=== PATIENT | male | born 1960 | race Caucasian/White ===

== ENCOUNTER 2019-03-22 05:56 | Inpatient (IN) ==
[2019-03-22] MEDS ORDERED: ceFAZolin Inj 2gm (Premix) 2 GM/50 ML BAG IV ONE ×2 (06:00→06:09)
[2019-03-22] MEDS ORDERED: LIDOCAINE W/ SODIUM BICARB 0.5 ML SYR SUBD ONE (06:00)
[2019-03-22] MEDS ORDERED: Lactated Ringers 1,000 ML PRIMARY IV ONE ×3 (06:00→11:01)
[2019-03-22] MEDS ORDERED: Vancomycin-PHA to Dose IV PRN (06:00)
[2019-03-22] MEDS ORDERED: LIDOCAINE W/ SODIUM BICARB 0.5 ML SYR ONE (06:10)
[2019-03-22] MEDS: Nasal Sanitizer POPSWAB ampule 3 AMP (Nozin) PREOP DOSE ENOS SCH ×3 (06:15→12:09)
[2019-03-22 06:27] LABS: BILIRUBIN,URINE NEGATIVE (NEG); CLARITY,URINE CLEAR (CLEAR); COLOR,URINE YELLOW (Y); GLUCOSE, URINE (UA) NEGATIVE (NEG); OCCULT BLOOD,URINE Trace-intact (NEG); PH,URINE 6.5 (5.0-8.5); PROTEIN,URINE NEGATIVE (NEG); UROBILINOGEN,URINE 0.2 EU/dL (0.2)
[2019-03-22 06:28] LABS: URINE SAMPLE TYPE CLEAN CATCH URINE
[2019-03-22] MEDS ORDERED: BACITRACIN 50,000 UNIT VIAL IRRIG ONE ×4 (06:54→10:40)
[2019-03-22] MEDS ORDERED: Sodium Chloride 0.9% vial 10 ML ONE ×3 (06:54→10:20)
[2019-03-22] MEDS ORDERED: BUPIVACAINE 0.25% W/ EPI - 10 ML VIAL ONE (07:01)
[2019-03-22] MEDS ORDERED: LIDOCAINE HCL 2 % 10 ML JELLY URO-JECT TOPICAL ONE (07:10)
[2019-03-22] MEDS ORDERED: ROCURONIUM 10 MG/1 ML - 5 ML VIAL IVP ONE (07:21)
[2019-03-22] MEDS ORDERED: fentaNYL Inj 250 MCG/5 ML VIAL ONE (07:25)
[2019-03-22] MEDS ORDERED: ONDANSETRON 4 MG/2 ML VIAL ONE ×2 (07:26→10:16)
[2019-03-22] MEDS ORDERED: KETOROLAC 30 MG/1 ML VIAL ONE ×2 (07:26→10:16)
[2019-03-22] MEDS ORDERED: PROPOFOL 10 MG/1 ML (200 MG/20 ML) VIAL IV ONE (07:26)
[2019-03-22] MEDS ORDERED: DEXAMETHASONE PF 10 MG/1 ML VIAL ONE (07:26)
[2019-03-22] MEDS ORDERED: LIDOCAINE MPF 2% - 5 ML (20 MG/1 ML) ONE (07:26)
[2019-03-22] MEDS ORDERED: BUPivacaine Inj 0.25% PF - 10ml vial ONE (08:20)
[2019-03-22] MEDS ORDERED: BUPivacaine Liposome/PF (Exparel) Inj 20ml vial INFIL ONE (08:20)
[2019-03-22] MEDS ORDERED: fentaNYL Inj 100 MCG/2 ML VIAL ONE (10:15)
[2019-03-22] MEDS ORDERED: Vancomycin Inj 1gm vial ONE ×2 (10:24→10:41)
[2019-03-22] MEDS ORDERED: TRANEXAMIC ACID 1,000 MG / 10 ML VIAL ONE (10:28)
[2019-03-22] MEDS ORDERED: Sodium Chloride 0.9% vial 20 ML ONE (10:40)
[2019-03-22] MEDS ORDERED: Gentamicin Inj 40 MG/ML VIAL ONE (10:41)
[2019-03-22] MEDS ORDERED: SUGAMMADEX SODIUM 200 MG/2 ML VIAL IV ONE (11:01)
[2019-03-22] MEDS ORDERED: Ondansetron ODT Tab 8 MG TAB PO PRN (11:40)
[2019-03-22] MEDS ORDERED: fentaNYL Inj 100 MCG/2 ML VIAL IVP PRN (11:40)
[2019-03-22] MEDS ORDERED: ONDANSETRON 4 MG/2 ML VIAL IVP PRN (11:40)
[2019-03-22] MEDS ORDERED: Meperidine Inj 50 MG/ML CARPUJECT IVP PRN (11:40)
[2019-03-22] MEDS ORDERED: Metoclopramide Inj 10 MG/2 ML VIAL IVP PRN (11:40)
[2019-03-22] MEDS ORDERED: MORPHINE SULFATE 2 MG/1 ML IVP PRN ×2 (11:40→13:00)
[2019-03-22] MEDS ORDERED: NALOXONE 0.4 MG/1 ML VIAL IVP PRN (11:40)
[2019-03-22] MEDS ORDERED: LIDOCAINE W/ SODIUM BICARB 0.5 ML SYR SUBD PRN (11:40)
[2019-03-22] MEDS ORDERED: Lactated Ringers 1,000 ML PRIMARY IV SCH (11:45)
[2019-03-22] MEDS: HYDROmorphone 2 MG/1 ML IVP PRN ×4 (12:18→12:40)
[2019-03-22] MEDS ORDERED: HYDROmorphone 2 MG/1 ML ONE (12:18)
[2019-03-22] MEDS ORDERED: DIAZEPAM 10 MG/2 ML (5 MG/1 ML) CARPUJECT IVP ONE (12:39)
[2019-03-22] MEDS ORDERED: DIAZEPAM 10 MG/2 ML (5 MG/1 ML) CARPUJECT ONE (12:40)
[2019-03-22] MEDS ORDERED: DIAZEPAM 10 MG/2 ML (5 MG/1 ML) CARPUJECT IVP PRN (13:00)
[2019-03-22] MEDS ORDERED: PROMETHAZINE 25 MG/1 ML VIAL IM PRN (13:00)
[2019-03-22] MEDS ORDERED: DIAZEPAM 10 MG TABLET PO PRN (13:00)
[2019-03-22] MEDS ORDERED: MAGNESIUM CITRATE 296 ML SOLUTION PO PRN (13:00)
[2019-03-22] MEDS ORDERED: OXYCODONE HCL 10 MG PO PRN (13:00)
[2019-03-22] MEDS ORDERED: BISACODYL 5 MG TABLET PO PRN (13:00)
[2019-03-22] MEDS ORDERED: Fleet Enema 133ml RECTAL PRN (13:00)
[2019-03-22] MEDS ORDERED: DOCUSATE 100 MG CAPSULE PO PRN (13:00)
[2019-03-22] MEDS ORDERED: MAGNESIUM 400 MG/5 ML - 30 ML (MILK OF MAGNESIA) PO PRN (13:00)
[2019-03-22] MEDS ORDERED: Ondansetron ODT Tab 4 MG TAB PO PRN (13:00)
[2019-03-22] MEDS ORDERED: Vancomycin-PHA to Dose IV SCH (13:00)
[2019-03-22] MEDS ORDERED: Prochlorperazine Edisylate Inj 10mg/2ml vial IVP PRN (13:00)
[2019-03-22] MEDS: MORPHINE SULFATE 30 MG ER TABLET PO SCH ×2 (15:42→23:20)
[2019-03-22] MEDS: Vancomycin 1.5 gm (Premix) 1.5 GM/300 ML PIGGYBACK IV SCH ×2 (15:43→23:21)
[2019-03-22] MEDS: oxyCODONE/APAP 10/325 Tab 1 EACH TAB PO PRN ×2 (17:29→21:27)
[2019-03-22] MEDS: ceFAZolin Inj 2gm (Premix) 2 GM/50 ML BAG IV SCH (17:29)
[2019-03-22] MEDS: BACLOFEN 20 MG TABLET PO SCH ×2 (17:43→21:27)
[2019-03-22] MEDS ORDERED: ATORVASTATIN 40 MG TABLET PO SCH (21:00)
[2019-03-22] MEDS ORDERED: TAMSULOSIN 0.4 MG CAPSULE PO SCH (21:00)
[2019-03-22] MEDS: Topiramate Tab 50 MG TAB PO SCH (21:33)
[2019-03-23] MEDS: ceFAZolin Inj 2gm (Premix) 2 GM/50 ML BAG IV SCH (00:36)
[2019-03-23] MEDS: oxyCODONE/APAP 10/325 Tab 1 EACH TAB PO PRN ×2 (04:17→08:38)
[2019-03-23 04:21] VITALS: RESP 16
[2019-03-23 04:31] LABS: BASOPHILS # (AUTO) 0.02 10*3/UL; BASOPHILS % (AUTO) 0.1 % (0-1); EOSINOPHILS # (AUTO) 0.04 10*3/UL; EOSINOPHILS % (AUTO) 0.3 % (0-8); Hemoglobin [HGB] 17.5 g/dL (14.0-18.0); LYMPHOCYTES # (AUTO) 1.35 10*3/uL; MEAN CORPUSCULAR HGB CONC 34.3 g/dL (33-37); MEAN CORPUSCULAR VOLUME 92.9 FL (80-90); MEAN PLATELET VOLUME 8.4 FL (7.4-12.2); MONOCYTES # (AUTO) 1.46 10*3/UL (0.3-0.8); MONOCYTES % (AUTO) 10.1 % (5-15); NEUTROPHILS # (AUTO) 11.49 10*3/UL; NEUTROPHILS % (AUTO) 79.8 % (50-80); RED BLOOD COUNT 5.49 10^6/uL (4.70-6.10)
[2019-03-23 04:33] LABS: PLATELET MORPHOLOGY COMMENT NORMAL MORPHOLOGY (NORM); RBC MORPHOLOGY COMMENT NORMAL MORPHOLOGY (NORM); WBC MORPHOLOGY COMMENT NORMAL MORPHOLOGY (NORM)
[2019-03-23 05:11] LABS: BLOOD UREA NITROGEN 17 mg/dL (7-22)
[2019-03-23] MEDS: Vancomycin 1.5 gm (Premix) 1.5 GM/300 ML PIGGYBACK IV SCH (07:37)
[2019-03-23] MEDS: MORPHINE SULFATE 30 MG ER TABLET PO SCH (07:37)
[2019-03-23] MEDS: BACLOFEN 20 MG TABLET PO SCH (08:37)
[2019-03-23] MEDS: Topiramate Tab 50 MG TAB PO SCH (08:37)
[2019-03-23 08:48] VITALS: BP 124/66; TEMP 99.3; O2SAT 92
[2019-03-23] MEDS ORDERED: HYDROCHLOROTHIAZIDE 25 MG TABLET PO SCH (09:00)
[2019-03-23] MEDS ORDERED: FLUCONAZOLE 200 MG TABLET PO SCH (09:00)
== END 2019-03-23 11:30 | disposition home or self-care (01) | DRG 518 ==
LOC: OR 05:56 → OPS 06:06 → MED/SURG 11:52
PROVIDERS: ADMIT Neurological Surgery; ATTEND Neurological Surgery